=== PATIENT | female | born 1985 | race Caucasian/White ===

== ENCOUNTER 2017-05-26 12:50 | Emergency (ER) | payer BC ==
[~2017-05-26] VITALS: Ht 162.6 cm; Wt 96.3 kg
[2017-05-26 14:29] LABS: HEMATOCRIT 41.4 % (36.0-46.0); MCH 27.1 PG (29.0-34.0); MCHC 32.4 G/DL (30.0-36.0); MCV 83.6 FL (83-99); PLATELET COUNT 261 K/uL (156-360); RBC DIS.WIDTH-CV 13.3 % (11.8-14.6); RBC DIS.WIDTH-SD 41.1 % (39-53); RED BLOOD COUNT 4.95 M/uL (3.80-5.20); WHITE BLOOD COUNT 9.6 K/uL (4.1-10.2)
[2017-05-26 14:30] LABS: ADD MIUA? YES; BILIRUBIN NEGATIVE; BLOOD NEGATIVE; COLOR YELLOW ((YELLOW)); GLUCOSE (STRIP) NEGATIVE; KETONES 5; LEUKOCYTES TRACE; NITRITE NEGATIVE; PROTEIN (STRIP) 30; SPECIFIC GRAVITY 1.028 (1.000-1.030); UROBILINOGEN 0.2 MG/DL (0.2-1.0)
[2017-05-26 14:38] LABS: BACTERIA RARE /HPF; EPITHELIAL CELLS RARE /HPF; MUCUS 1+ /LPF; RED BLOOD CELLS 0-5 /HPF (0-5); UCUL ADDED? NO; WHITE BLOOD CELLS 0-5 /HPF (0-5)
[2017-05-26 14:40] LABS: CHLORIDE 105 mEq/L (99-109); POTASSIUM 4.4 mEq/L (3.7-5.4); SODIUM 136 mEq/L (136-147)
[2017-05-26 14:42] LABS: GLUCOSE 97 mg/dL (70-99)
[2017-05-26 14:43] LABS: ANION GAP 8 MEQ/L (2-14)
[2017-05-26 14:44] LABS: TOTAL BILIRUBIN 0.3 mg/dL (0.0-1.0)
[2017-05-26 14:45] LABS: ALKALINE PHOSPHATASE 82 IU/L (3-129)
[2017-05-26 14:47] LABS: UREA NITROGEN (BUN) 11 mg/dL (9-23)
[2017-05-26 14:51] LABS: GFR ESTIMATE (CALCULATED) > 59 mL/min/
[2017-05-26 14:55] LABS: QUANTITATIVE HCG < 4.0 MIU/ML
[2017-05-26] MEDS ORDERED: BENTYL10 MG PO (17:48)
[2017-05-26] MEDS ORDERED: ZOFRAN ODT8 MG PO (17:48)
[2017-05-26 18:00] VITALS: BP 127/87
== END 2017-05-26 18:34 | disposition home or self-care (01) ==
LOC: EME 12:50
DX: R10.9 Unspecified abdominal pain (principal); R11.10 Vomiting, unspecified; R19.7 Diarrhea, unspecified
CPT/HCPCS: 74177; 80053; 81003; 84702; 85027; 99281; 99284; J7040